=== PATIENT | male | born 1955 | race Caucasian/White ===

== ENCOUNTER 2018-05-17 09:24 | Outpatient (CLI) | payer MEDICAID ==
[2018-05-17] VITALS (21 sets, daily range): BP systolic 118–160; BP diastolic 62–111
== END 2018-05-17 23:59 | disposition home or self-care (01) ==
LOC: CARD DIAG 09:24
DX: R42 Dizziness and giddiness (principal); F17.200 Nicotine dependence, unspecified, uncomplicated
CPT/HCPCS: 93660

== ENCOUNTER 2018-05-24 12:27 | Outpatient (CLI) | payer MEDICAID | END 2018-05-24 23:59 | disposition home or self-care (01) | LOC: RAD 12:27 | DX: R55 Syncope and collapse (principal); F17.200 Nicotine dependence, unspecified, uncomplicated | CPT/HCPCS: 95816 ==